=== PATIENT | male | born 1970 | race African-American/Black ===

== ENCOUNTER 2024-03-03 10:17 | Emergency (ER) | payer MEDICAID, OTHER ==
[~2024-03-03] VITALS: Ht 172.7 cm; Wt 75.0 kg
[~2024-03-03 10:17] MED LIST: LURA40TA2 PO
[2024-03-03 10:23] VITALS: O2SAT 98
[2024-03-03] MEDS ORDERED: BUSP10TA4 MT (12:08)
[2024-03-03] MEDS ORDERED: TRAZ-252 MT (12:08)
[2024-03-03] MEDS ORDERED: BUPR150T3 MT (12:08)
[2024-03-03 12:21] VITALS: BP 118/79; PULSE 80; RESP 19; TEMP 98.8
== END 2024-03-03 12:22 | disposition home or self-care (01) ==
LOC: ER 10:17
DX: F41.9 Anxiety disorder, unspecified (principal); F32.A Depression, unspecified; G47.00 Insomnia, unspecified; F20.9 Schizophrenia, unspecified; Z98.890 Other specified postprocedural states
CPT/HCPCS: 99283

== ENCOUNTER 2024-04-05 09:50 | Emergency (ER) | payer MEDICAID ==
[~2024-04-05] VITALS: Ht 180.3 cm; Wt 90.0 kg
[~2024-04-05 09:50] MED LIST changes: +BUPR150T3 MT; +BUSP10TA4 MT; +TRAZ-252 MT
[2024-04-05 10:00] VITALS: O2SAT 100
[2024-04-05] MEDS ORDERED: BUSP10TA4 MT (10:35)
[2024-04-05] MEDS ORDERED: BUPR150T3 MT (10:35)
[2024-04-05 10:41] VITALS: BP 111/70; PULSE 84; RESP 20; TEMP 98.1
== END 2024-04-05 10:42 | disposition home or self-care (01) ==
LOC: ER 09:50
DX: F41.9 Anxiety disorder, unspecified (principal); F20.9 Schizophrenia, unspecified; Z98.890 Other specified postprocedural states
CPT/HCPCS: 99283